=== PATIENT | female | born 1980 | race Caucasian/White ===

== ENCOUNTER 2019-11-25 13:14 | Emergency (ER) | payer OTHER ==
[~2019-11-25] VITALS: Ht 162.6 cm; Wt 77.1 kg
[~2019-11-25 13:14] MED LIST: IBUPROFEN 800800 M1 PO; NOHOMEMEDICATIONS
[2019-11-25] MEDS ORDERED: FLEXERIL PO (14:44)
[2019-11-25 16:17] VITALS: BP 140/85
== END 2019-11-25 16:17 | disposition home or self-care (01) ==
LOC: M.ERS 13:14
DX: S16.1XXA Strain of muscle, fascia and tendon at neck level, initial encounter (principal); S29.012A Strain of muscle and tendon of back wall of thorax, initial encounter; F17.210 Nicotine dependence, cigarettes, uncomplicated; Z88.0 Allergy status to penicillin; V89.2XXA Person injured in unspecified motor-vehicle accident, traffic, initial encounter; Y93.89 Activity, other specified; Y92.89 Other specified places as the place of occurrence of the external cause; Y99.8 Other external cause status